=== PATIENT | male | born 1995 | race Caucasian/White ===

== ENCOUNTER 2024-09-23 08:39 | Day surgery (SDC) | payer OTHER, SELFPAY ==
[2024-09-23] VITALS (11 sets, daily range): BP systolic 123–168; BP diastolic 76–110; PULSE 50–82; RESP 13–18; TEMP 36.3–36.7; O2SAT 97–100; BMI 31.0
--- NOTE | 2024-09-23 08:40 | XR_ITS ---
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 There is a nail with barbs angled toward the proximal end in the remaining soft tissue of the thumb and extending anterior to the second metacarpal. Bone not involved. No other radiopaque soft tissue abnormality. XR/XR hand LT min 3V* [id number] IMPRESSION: Nail in the soft tissues of the left hand as above.
--- OUTSIDE RECORDS SUMMARY | 2024-09-23 08:43 | XMS_ITS | Encounter Summary ---
Author Organization [facility] Address [address] [place] [address] Care Team Providers Care Claims Service Adjustor Name Role Phone Almita Van DO Primary Care Provider Encounter Details Date Type Department Care Team (Latest Contact Info) Description 08/15/2003 Outpatient Historical 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
--- OUTSIDE RECORDS SUMMARY | 2024-09-23 08:43 | XMS_ITS | Encounter Summary ---
Author Organization [facility] Address [address] [place] [address] Care Team Providers Care Director Banking Name Role Phone Almita Van DO Primary Care Provider Encounter Details Date Type Department Care Team (Latest Contact Info) Description 08/13/1997 Outpatient Historical [facility] Karson [address] [place] [address] Bneny Moreland, Abel Braswell MD [address] [place] [phone] Other and unspecified noninfectious gastroenteritis and colitis(558.9) (Primary Dx); Volume depletion Social History Tobacco Use Types Packs/Day Years Used Date Smoking Tobacco: Never Assessed Sex and Gender Information Value Date Recorded Sex Assigned at Not on file Legal Sex Male 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
--- OUTSIDE RECORDS SUMMARY | 2024-09-23 08:43 | XMS_ITS | Encounter Summary ---
Author Organization [facility] Address [address] [place] [address] Care Team Providers Care President And Ceo Name Role Phone Almita Van DO Primary Care Provider Encounter Details Date Type Department Care Team (Latest Contact Info) Description 06/01/1998 Outpatient Historical [facility] Imaging Services-Juan Oropeza [place] [address] [place] [address] Jaylen Robert MD NO ADDRESS ON FILE Acute bronchitis (Primary Dx) Social History Tobacco Use Types Packs/Day Years Used Date Smoking Tobacco: Never Assessed Sex and Gender Information Value Date Recorded Sex Assigned at Not on file Legal 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
--- OUTSIDE RECORDS SUMMARY | 2024-09-23 08:43 | XMS_ITS | Encounter Summary ---
Author Organization [facility] Address [address] [place] [address] Care Team Providers Care Early Education Teacher Name Role Phone Almita Van DO Primary Care Provider Encounter Details Date Type Department Care Team (Latest Contact Info) Description 09/05/1998 Outpatient Historical [facility] Pediatrics-Juan Oropeza [place] [address] [place] [address] Jaylen Robert MD NO ADDRESS ON FILE Acute pharyngitis (Primary Dx) Social History Tobacco Use Types Packs/Day Years Used Date Smoking Tobacco: Never Assessed Sex and Gender Information Value Date Recorded Sex Assigned at Not on file 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
--- OUTSIDE RECORDS SUMMARY | 2024-09-23 08:43 | XMS_ITS | Encounter Summary ---
Author Organization [facility] Address [address] [place] [address] Care Team Providers Care Camera Person Name Role Phone Almita Van DO Primary Care Provider [phone] Encounter Details Date Type Department Care Team (Latest Contact Info) Description 08/15/2003 Outpatient Historical [facility] Pediatrics-Juan Oropeza [place] [address] [place] [address] Jaylen Robert MD NO ADDRESS ON FILE CONTUSION OF ANKLE (Primary Dx); CELLULITIS OF LEG; FX FOOT BONE NOS-CLOSED Social History Tobacco Use Types Packs/Day Years Used Date Smoking Tobacco: Never Assessed Sex and Gender Information Value Date Recorded Sex Assigned at Not on file Legal Sex Male 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
--- OUTSIDE RECORDS SUMMARY | 2024-09-23 08:43 | XMS_ITS | Encounter Summary ---
Author Organization [facility] Address [address] [place] [address] Care Team Providers Care Nuclear Unit Operator Name Role Phone Almita Van DO Primary Care Provider Encounter Details Date Type Department Care Team (Latest Contact Info) Description 07/25/1997 Outpatient Historical [facility] Pediatrics-Juan Oropeza [place] [address] [place] [address] Jaylen Robert MD NO ADDRESS ON FILE Acute pharyngitis (Primary Dx) Social History Tobacco Use Types Packs/Day Years Used Date Smoking Tobacco: Never Assessed Sex and Gender Information Value Date Recorded Sex Assigned at Not on file Legal Sex Male 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
--- OUTSIDE RECORDS SUMMARY | 2024-09-23 08:43 | XMS_ITS | Encounter Summary ---
Author Organization [facility] Address [address] [place] [address] Care Team Providers Care Pipe Coverer Helper Name Role Phone Almita Van DO Primary Care Provider Encounter Details Date Type Department Care Team (Latest Contact Info) Description 06/01/1998 Outpatient Historical [facility] Pediatrics-Juan Oropeza [place] [address] [place] [address] Jaylen Robert MD NO ADDRESS ON FILE Acute bronchitis (Primary Dx) Social History Tobacco Use Types Packs/Day Years Used Date Smoking Tobacco: Never Assessed Sex and Gender Information Value Date Recorded Sex Assigned at Not on file Legal Sex Male 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
--- OUTSIDE RECORDS SUMMARY | 2024-09-23 08:43 | XMS_ITS | Encounter Summary ---
Author Organization [facility] Address [address] [place] [address] Care Team Providers Care Laboratory Manager Name Role Phone Almita Van DO Primary Care Provider Encounter Details Date Type Department Care Team (Latest Contact Info) Description 09/22/1997 Outpatient Historical [facility] Pediatrics-Juan Oropeza [place] [address] [place] [address] Wayne Chatman MD NO ADDRESS ON FILE Other and unspecified noninfectious gastroenteritis and colitis(558.9) (Primary Dx) Social History Tobacco Use Types Packs/Day Years Used Date Smoking Tobacco: Never Assessed Sex and Gender Information Value Date Recorded Sex Assigned at Not on file Legal 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
--- OUTSIDE RECORDS SUMMARY | 2024-09-23 08:43 | XMS_ITS | Encounter Summary ---
Author Organization [facility] Address [address] [place] [address] Care Team Providers Care Backfiller Name Role Phone Almita Van DO Primary Care Provider Encounter Details Date Type Department Care Team (Latest Contact Info) Description 01/25/1998 Outpatient Historical [facility] Pediatrics-Juan Oropeza [place] [address] [place] [address] Jaylen Robert MD NO ADDRESS ON FILE Bronchopneumonia, organism unspecified (Primary Dx) Social History Tobacco Use Types Packs/Day Years Used Date Smoking Tobacco: Never Assessed Sex and Gender Information Value Date Recorded Sex Assigned at Not on file Legal 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
--- OUTSIDE RECORDS SUMMARY | 2024-09-23 08:43 | XMS_ITS | Encounter Summary ---
Author Organization [facility] Address [address] [place] [address] Care Team Providers Care Reverse Unit Operator Fisherman Name Role Phone Almita Van DO Primary Care Provider Encounter Details Date Type Department Care Team (Latest Contact Info) Description 07/25/2003 Outpatient Historical [facility] Pediatrics-Juan Oropeza [place] [address] [place] [address] Jaylen Robert MD NO ADDRESS ON FILE FX PHALANX, FOOT-CLOSED (Primary Dx) Social History Tobacco Use Types Packs/Day Years Used Date Smoking Tobacco: Never Assessed Sex and Gender Information Value Date Recorded Sex Assigned at Not on file Legal Sex Male 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
--- OUTSIDE RECORDS SUMMARY | 2024-09-23 08:43 | XMS_ITS | Encounter Summary ---
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
--- OUTSIDE RECORDS SUMMARY | 2024-09-23 08:43 | XMS_ITS | Encounter Summary ---
Author Organization [facility] Address [address] [place] [address] Care Team Providers Care Vice President Of Development Name Role Phone Almita Van DO Primary Care Provider [phone] Encounter Details Date Type Department Care Team (Latest Contact Info) Description 09/08/1997 Outpatient Historical [facility] Pediatrics-Juan Oropeza Karson [address] [place] [address] Wayne Chatman MD NO ADDRESS ON FILE Abdominal pain, unspecified site (Primary Dx) Social History Tobacco Use Types Packs/Day Years Used Date Smoking Tobacco: Never Assessed Sex and Gender Information Value Date Recorded Sex Assigned at Not on file Legal 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
--- OUTSIDE RECORDS SUMMARY | 2024-09-23 08:43 | XMS_ITS | Encounter Summary ---
Author Organization [facility] Address [address] [place] [address] Care Team Providers Care Instrument Person Name Role Phone Almita Van DO Primary Care Provider [phone] Encounter Details Date Type Department Care Team (Latest Contact Info) Description 01/27/1998 Outpatient Historical [facility] Pediatrics-Juan Oropeza [place] [address] [place] [address] Jaylen Robert MD NO ADDRESS ON FILE Bronchopneumonia, organism unspecified (Primary Dx) Social History Tobacco Use Types Packs/Day Years Used Date Smoking Tobacco: Never Assessed Sex and Gender Information Value Date Recorded Sex Assigned at Not on file Legal Sex Male 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
--- OUTSIDE RECORDS SUMMARY | 2024-09-23 08:43 | XMS_ITS | Encounter Summary ---
Author Organization [facility] Address [address] [place] [address] Care Team Providers Care Soldering Inspector Name Role Phone Almita Van DO Primary Care Provider Encounter Details Date Type Department Care Team (Late st Contact Info) Description 03/14/1997 Outpatient Historical [facility] Pediatrics-Juan Oropeza [place] [address] [place] [address] Benny Moreland, Abel Braswell MD [address] [place] [phone] Acute pharyngitis (Primary Dx) Social History Tobacco Use Types Packs/Day Years Used Date Smoking Tobacco: Never Assessed Sex and Gender Information Value Date Recorded Sex Assigned at Not on file Legal 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
--- OUTSIDE RECORDS SUMMARY | 2024-09-23 08:43 | XMS_ITS | Encounter Summary ---
Author Organization [facility] Address [address] [place] [address] Care Team Providers Care Blending Kettle Tender Name Role Phone Almita Van DO Primary Care Provider Encounter Details Date Type Department Care Team (Latest Contact Info) Description 04/11/[address] [facility] Pediatrics-Juan Oropeza [place] [address] [place] [address] Jaylen Robert MD NO ADDRESS ON FILE Need for prophylactic vaccination with combined txfqevhbdk-kbiusyt-g ertussis (DTP) vaccine (Primary Dx); Need for prophylactic vaccination with tgnjkoa-rloss-pfwpnu a (MMR) vaccine; Need for prophylactic vaccination against Hemophilus influenza type B (Hib); Vaccine for varicella Social History Tobacco Use Types Packs/Day Years Used Date Smoking Tobacco: Never Assessed Sex and Gender Information Value Date Recorded Sex Assigned at Not on file Legal Sex Male 4:40 AM OPERATIONS/DISPATCH Gender Identity Not on file Sexual Orientation Not on file documented as of this encounter Plan of Treatment Not on file documented as of this encounter Visit Diagnoses Diagnosis Need for prophylactic vaccination with combined aqrbowxkey-qhmgcqx-iktwtpwyr (DTP) vaccine- Primary Need for prophylactic vaccination with alouhbo-beblp-zjtgyhv (MMR) vaccine Need for prophylactic vaccination against Hemophilus influenza type B (Hib) Vaccine for varicella Need for prophylactic vaccination and inoculation against varicella documented in this encounter Care Teams Blending Kettle Tender Relationship Specialty Start Date End Date Almita Van DO [address] [place] [address] PCP - General Family Practice 08/16/20 documented as of this encounter
--- OUTSIDE RECORDS SUMMARY | 2024-09-23 08:43 | XMS_ITS | Clinical Summary ---
Author Organization [facility] Address [address] [place] [address] Phone Care Team Providers Care Nurse Research Name Role Phone Almita Van DO Primary Care Provider Allergies No known active allergies Medications naproxen (NAPROSYN) 500 mg tablet Take 1 Tablet (500 mg) by mouth 2 times daily with meals. 60 Tablet 07/01/2017 Active triamcinolone acetonide (KENALOG) 0.5 % OintmentIndicati ons:Rash and nonspecific skin eruption Apply small amount to left hand BID until rash healed 30 Gram 1 12/09/2018 Active rOPINIRole (REQUIP) 0.5 mg tablet Take 0.5 mg by mouth daily. 01/20/2020 Active hydrOXYzine pamoate (VISTARIL) 50 mg capsuleIndicatio ns:Anxiety Take 1 Capsule (50 mg) by mouth 3 times daily as needed for Anxiety or Itching. 90 Capsule 1 02/15/2020 Active terbinafine HCL (AntifungaL, terbinafine,) 1 % CreamIndications :Tinea cruris Apply small amount BID to rash on left buttocks. 24 Gram 2 02/15/2020 Active sertraline (ZOLOFT) 100 mg tabletIndication s:Major depressive disorder with single episode, in partial remission Take 1 Tablet (100 mg) by mouth daily. 90 Tablet 3 05/17/2020 Active acetaminophen (TYLENOL) 325 mg tablet Take 325 mg by mouth every 4 hours as needed. Active prazosin (MINIPRESS) 2 mg capsuleIndicatio ns:Anxiety TAKE 1 CAPSULE(2 MG) BY MOUTH DAILY 30 Capsule 2 09/12/2020 Active traZODone (DESYREL) 50 mg tabletIndication s:Major depressive disorder with single episode, in partial remission,Insomn ia, unspecified type TAKE 1 TABLET(50 MG) BY MOUTH DAILY 30 Tablet 2 09/12/2020 Active Active Problems No known active problems Immunizations Immunization Administration Dates Next Due (ADACEL/BOOSTRIX)(10 YR UP) TDAP VACCINE, 0.5ML, IM 07/14/2009 (M-M-R II/PRIORIX)(12 MO UP) MEASLES, MUMPS AND RUBELLA VIRUS VACCINE, 0.5 ML IM/SUBCUT 11/06/2001,04/11/1997 (VARIVAX)(12 MOS UP)VARICELL A VIRUS VACCINE (PF) 0.5 ML, SUB CUT 04/11/1997 Dt Dtp Dtap Vaccine 11/06/2001, 8,1996,1996,1996 HIB, Unspecified Formulation 04/11/1997, 1996,1996,1996 Hepatitis B Vaccine 1996,1996,1995 IPV/OPV 11/06/2001, 7,1996,1996 Social History Tobacco Use Types Packs/Day Years Used Date Smoking Tobacco: Every Day Cigarettes Smokeless Tobacco: Current Tobacco Cessation:Ready to Q uit: No Sex and Gender Information Value Date Recorded Sex Assigned at Not on file Legal 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 Gender Identity Not on file Sexual Orientation Not on file Last Filed Vital Signs Vital Sign Reading Time Taken Comments Blood Pressure 116/74 08/16/2020 2:51 PM CDT Pulse 122 08/16/2020 2:51 PM CDT Temperature 37.5 C (99.5 F) 08/16/2020 2:51 PM CDT Respiratory Rate 18 12/09/2018 9:03 AM CDT Oxygen Saturation 97% 08/16/2020 2:51 PM CDT Inhaled Oxygen Concentration - - Weight 90.3 kg (199 lb) 08/16/2020 2:51 PM CDT Height 175.3 cm (5' 9 ) 08/16/2020 2:51 PM CDT Body Mass Index 29.39 08/16/2020 2:51 PM CDT Plan of Treatment Health Maintenance Due Date Last Done Comments DTAP/TDAP/TD VACCINES (7 - Td or Tdap) 07/15/2019 07/14/2009, 11/06/2001, 04/11/1997, Additional history exists Preventative Visit- Commercial 03/24/2024 INFLUENZA VACCINE (#1) 2024 08/16/2020 HEPATITIS B VACCINES Completed 1996, 1996, 1996 HPV VACCINES Aged Out No longer eligi ble based on patient's age to complete this topic Insurance [address] [place] [id number] [facility] Care Teams Nurse Research Relationship Specialty Start Date End Date Almita Van DO [address] [facility] [place] [address] PCP - General Family Practice 08/16/20
--- OUTSIDE RECORDS SUMMARY | 2024-09-23 08:43 | XMS_ITS | Clinical Summary ---
Author Organization [facility] Address [address] [place] [address] Phone Care Team Providers Care Knocker Off Name Role Phone Almita Van Primary Care Provider Allergies No known active allergies Medications acetaminophen (TYLENOL) 325 mg tablet Take 325 mg by mouth every 4 hours as needed. 08/17/19 21 Active hydrOXYzine pamoate (VISTARIL) 50 mg capsuleIndicatio ns:Anxiety Take 1 Capsule (50 mg) by mouth 3 times daily as needed for Anxiety. 90 Capsule 1 02/13/20 23 Active sertraline (Zoloft) 100 mg tabletIndication s:Moderate episode of recurrent major depressive disorder (CMS/HCC) Take 1.5 Tablets (150 mg) by mouth daily. 135 Tablet 3 05/11/19 25 Active gabapentin (NEURONTIN) 300 mg capsuleIndicatio ns:Seizure disorder (CMS/HCC),Chroni c neck pain Take 2 capsule by mouth in the morning and 1 capsule in the evening. 270 Capsule 3 05/11/19 25 Active amphetamine-dext roamphetamine (ADDERALL XR) 20 mg Extended Release 24 hour capsuleIndicatio ns:Attention deficit hyperactivity disorder (ADHD), combined type Take 1 Capsule (20 mg) by mouth daily. Needs appointment for further refills Max Daily Amount: 20 mg 30 Capsule 09/03/19 25 Active neomycin-polymyx in-dexAMETHasone (MAXITROL) 3.5mg/mL-10,000 unit/mL-0.1 % suspensionIndica tions:Hordeolum externum left lower eyelid Administer 2 Drops in left eye every 6 hours. 5 mL 3 09/14/19 Active amphetamine-dext roamphetamine (ADDERALL XR) 20 mg Extended Release 24 hour capsuleIndicatio ns:Attention deficit hyperactivity disorder (ADHD), combined type TAKE ONE CAPSULE BY MOUTH DAILY 30 Capsule 06/23/19 25 2024 Discontinued amoxicillin-clav ulanate (AUGMENTIN) 875-125 mg tabletIndication s:Hordeolum externum left lower eyelid Take 1 Tablet by mouth every 12 hours for 7 days. 14 Tablet 09/14/19 25 2024 Active Problems Problem Noted Date Diagnosed Date Chronic neck pain 05/11/2024 Seizure disorder 05/11/2024 Attention deficit hyperactiv ity disorder (ADHD), combined type 04/01/2023 Moderate episode of recurrent major depressive d isorder 04/01/2023 Resolved Problems Problem Noted Date Diagnosed Date Resolved Date Grand mal seizure 05/11/2024 Encounters Date Type Department Care Team Description 09/13/2024 10:00 AM CDT Office Visit [facility] [address] [place] [address] Cameron Song, TUNNEL MUCKER Hordeolum externum left lower eyelid (Primary Dx); Attention deficit hyperactivity disorder (ADHD), combined type; Chronic neck pain; Seizure disorder (CMS/HCC); Moderate episode of recurrent major depressive disorder (CMS/HCC) 09/10/2024 Refill [facility] [address] [place] [address] Almita Van DO Moderate episode of recurrent major depressive disorder (CMS/HCC) 09/01/2024 Refill [facility] [address] [place] [address] Almita Van DO Attention deficit hyperactivity disorder (ADHD), combined type from Last 3 Months Immunizations Immunization Administration Dates Next Due (ADACEL/BOOSTRIX)(10 YR UP) TDAP VACCINE, 0.5ML, IM 07/14/2009 (M-M-R II/PRIORIX)(12 MO UP) MEASLES, MUMPS AND RUBELLA VIRUS VACCINE, 0.5 ML IM/SUBCUT 11/06/2001,04/11/1997 (SPIKEVAX) (12 YRS UP PRIMAR Y SERIES) COVID-19 VACCINE - MRNA-1273(PF) 100 MCG/0.5 ML IM SUSP 04/23/2021 (VARIVAX)(12 MOS UP)VARICELL A VIRUS VACCINE (PF) 0.5 ML, SUB CUT 04/11/1997 Dt Dtp Dtap Vaccine 11/06/2001, 8,1996,1996,1996 HIB, Unspecified Formulation 04/11/1997, 1996,1996,1996 Hepatitis B Vaccine 1996,1996,1995 INFLUENZA VACCINE QUADRIVALE NT 6 MOS UP IM 02/12/2023 IPV/OPV 11/06/2001, 7,1996,1996 Family History Medical History Relation Name Comments No Known Problems Brother 2 Heart Disease Father Diabetes Mother Obesity Mother Relation Name Status Comments Brother 2 Alive Father Mother Alive Social History Tobacco Use Types Packs/Day Years Used Date Smoking Tobacco: Every Day Cigarettes Passive Smoke Exposure: Current Smokeless Tobacco: Former Chew Tobacco Cessation:Ready to Q uit: Not Asked; Counseling Given: Yes Alcohol Use Standard Drinks/Week Comments Yes 1 (1 standard drink = 0.6 oz pur e alcohol) maybe one a week Feeling Safe Answer Date Recorded Are you in a relationship wi th someone who hurts you emotionally and/or physically? 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 CLERK Gender Identity Not on file Sexual Orientation Not on file Last Filed Vital Signs Vital Sign Reading Time Taken Comments Blood Pressure 126/68 09/13/2024 10:05 AM CDT Pulse 64 09/13/2024 10:05 AM CDT Temperature 36.5 C (97.7 F) 09/13/2024 10:05 AM CDT Respiratory Rate 18 09/13/2024 10:05 AM CDT Oxygen Saturation 97% 09/13/2024 10:05 AM CDT Inhaled Oxygen Concentration - - Weight 93.4 kg (206 lb) 09/13/2024 10:05 AM CDT Height 175.3 cm (5' 9 ) 09/13/2024 10:05 AM CDT Body Mass Index 30.42 09/13/2024 10:05 AM CDT Plan of Treatment Upcoming Encounters Date Type Department Care Team (Late st Contact Info) Description 12/16/2024 1:00 PM CDT Office Visit [facility] [place] [address] [place] [address] Almita Van, DO [address] [place] [address] Health Maintenance Due Date Last Done Comments DTAP/TDAP/TD VACCINES (7 - Td or Tdap) 07/15/2019 07/14/2009, 11/06/2001, 04/11/1997, Additional history exists COVID-19 Vaccine ( season) 2023 04/23/2021, 03/26/2021 Preventative Visit- Commercial 03/24/2024 INFLUENZA VACCINE (#1) 2024 , 01/03/2021, 01/03/2021, Additional history exists HEPATITIS B VACCINES Completed 1996, 1996, 1996, Additional history exists HPV VACCINES Aged Out No longer eligi ble based on patient's age to complete this topic Insurance [employer] Care Teams Knocker Off Relationship Specialty Start Date End Date Almita Van DO [address] [place] [phone] PCP - General 11/07/20
--- OUTSIDE RECORDS SUMMARY | 2024-09-23 08:43 | XMS_ITS | Encounter Summary ---
Author Organization [facility] Address [address] [place] [address] Care Team Providers Care Linen Room Worker Name Role Phone Almita Van DO Primary Care Provider [phone] Encounter Details Date Type Department Care Team (Late st Contact Info) Description 04/07/1998 Outpatient Historical [facility] Pediatrics-[place] Telfair [address] [place] [address] Jaylen Robert MD NO ADDRESS ON FILE Social History Tobacco Use Types Packs/Day Years Used Date Smoking Tobacco: Never Assessed Sex and Gender Information Value Date Recorded Sex Assigned at Not on file Legal Sex Male 4:40 AM ONCOLOGY NURSE NAVIGATOR Gender Identity Not on file Sexual Orientation Not on file documented as of this encounter Plan of Treatment Not on file documented as of this encounter Visit Diagnoses Not on filedocumented in this encounter Care Teams Linen Room Worker Relationship Specialty Start Date End Date Almita Van DO [address] [place] [address] PCP - General Family Practice 08/16/20 documented as of this encounter
--- OUTSIDE RECORDS SUMMARY | 2024-09-23 08:43 | XMS_ITS | Encounter Summary ---
Author Organization [facility] Address [address] [place] [address] Care Team Providers Care Gymnastics Coach Or Instructor Name Role Phone Almita Van DO Primary Care Provider Encounter Details Date Type Department Care Team (Latest Contact Info) Description 05/28/1998 Outpatient Historical [facility] Sandip Karson [address] [place] [address] Wayne Chatman MD NO ADDRESS ON FILE Fever and other physiologic disturbances of temperature regulation (Primary Dx) Social History Tobacco Use Types Packs/Day Years Used Date Smoking Tobacco: Never Assessed Sex and Gender Information Value Date Recorded Sex Assigned at Not on file Legal Sex Male 4:40 AM HEALTH PROGRAM DIRECTOR Gender Identity Not on file Sexual Orientation Not on file documented as of this encounter Plan of Treatment Not on file documented as of this encounter Visit Diagnoses Diagnosis Fever and other physiologic disturbances of temperature regulation- Primary documented in this encounter Care Teams Gymnastics Coach Or Instructor Relationship Specialty Start Date End Date Almita Van DO [address] [place] [address] PCP - General Family Practice 08/16/20 documented as of this encounter
--- OUTSIDE RECORDS SUMMARY | 2024-09-23 08:43 | XMS_ITS | Encounter Summary ---
Author Organization [facility] Address [address] [place] [address] Care Team Providers Care Phy Therapist Name Role Phone Almita Van DO Primary Care Provider Encounter Details Date Type Department Care Team (Latest Contact Info) Description 01/25/1998 Outpatient Historical [facility] Imaging Services-[place] Oro[place] [address] [place] [address] Jaylen Robert MD NO ADDRESS ON FILE Bronchopneumonia, organism unspecified (Primary Dx) Social History Tobacco Use Types Packs/Day Years Used Date Smoking Tobacco: Never Assessed Sex and Gender Information Value Date Recorded Sex Assigned at Not on file Legal Sex Male 4: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
--- OUTSIDE RECORDS SUMMARY | 2024-09-23 08:43 | XMS_ITS | Encounter Summary ---
Author Organization [facility] Address [address] [place] [address] Care Team Providers Care Glass Technician Name Role Phone Almita Van DO Primary Care Provider [phone] Encounter Details Date Type Department Care Team (Late st Contact Info) Description 06/21/1997 Outpatient Historical [facility] Pediatrics[facility] [address] [place] [address] Jaylen Robert MD NO ADDRESS ON FILE Social History Tobacco Use Types Packs/Day Years Used Date Smoking Tobacco: Never Assessed Sex and Gender Information Value Date Recorded Sex Assigned at Not on file Legal Sex Male 4:40 AM BIOINFORMATICS SCIENTIST Gender Identity Not on file Sexual Orientation Not on file documented as of this encounter Plan of Treatment Not on file documented as of this encounter Visit Diagnoses Not on filedocumented in this encounter Care Teams Glass Technician Relationship Specialty Start Date End Date Almita Van DO [address] [place] [address] PCP - General Family Practice 08/16/20 documented as of this encounter
--- OUTSIDE RECORDS SUMMARY | 2024-09-23 08:43 | XMS_ITS | Encounter Summary ---
Author Organization [facility] Address [address] [place] [address] Care Team Providers Care Acquisition Professional Name Role Phone Almita Van DO Primary Care Provider Encounter Details Date Type Department Care Team (Latest Contact Info) Description 02/09/1998 Outpatient Historical [facility] Pediatrics-[place] [address] [place] [address] Jaylen Robert MD NO ADDRESS ON FILE Acute nonsup otitis media (Primary Dx) Social History Tobacco Use Types Packs/Day Years Used Date Smoking Tobacco: Never Assessed Sex and Gender Information Value Date Recorded Sex Assigned at Not on file Legal Sex Male 4:40 AM CANAL BOAT CAPTAIN Gender Identity Not on file Sexual Orientation Not on file documented as of this encounter Plan of Treatment Not on file documented as of this encounter Visit Diagnoses Diagnosis Acute nonsup otitis media- Primary Acute nonsuppurative otitis media, unspecified documented in this encounter Care Teams Acquisition Professional Relationship Specialty Start Date End Date Almita Van DO [address] [place] [address] PCP - General Family Practice 08/16/20 documented as of this encounter
--- OUTSIDE RECORDS SUMMARY | 2024-09-23 08:44 | XMS_ITS | Encounter Summary ---
Author Organization [facility] Address [address] [place] [address] Care Team Providers Care Crown And Bridge Technician Name Role Phone Almita Van DO Primary Care Provider Encounter Details Date Type Department Care Team (Latest Contact Info) Description 07/21/2003 Outpatient Historical [facility] Imaging Services-[place]uan Oro[place] [address] [place] [address] Jaylen Robert MD NO ADDRESS ON FILE SPRAIN OF FOOT NOS (Primary Dx) Social History Tobacco Use Types Packs/Day Years Used Date Smoking Tobacco: Never Assessed Sex and Gender Information Value Date Recorded Sex Assigned at Not on file Legal Sex Male 4:40 AM BRIDGE MANAGER Gender Identity Not on file Sexual Orientation Not on file documented as of this encounter Plan of Treatment Not on file documented as of this encounter Visit Diagnoses Diagnosis Sprain of foot, unspecified site- Primary documented in this encounter Care Teams Crown And Bridge Technician Relationship Specialty Start Date End Date Almita Van DO [address] [place] [address] PCP - General Family Practice 08/16/20 documented as of this encounter
--- OUTSIDE RECORDS SUMMARY | 2024-09-23 08:44 | XMS_ITS | Encounter Summary ---
Author Organization [facility] Address [address] [place] [address] Care Team Providers Care Fuel Cell Systems Engineer Name Role Phone Almita Van DO Primary Care Provider [phone] Encounter Details Date Type Department Care Team (Latest Contact Info) Description 02/10/2003 Outpatient Historical [facility] Pediatrics-[place]uan Orope[place] [address] [place] [address] Jaylen Robert MD NO ADDRESS ON FILE CHEST PAIN NOS (Primary Dx); CARDIAC DYSRHYTHMIA NOS Social History Tobacco Use Types Packs/Day Years Used Date Smoking Tobacco: Never Assessed Sex and Gender Information Value Date Recorded Sex Assigned at Not on file Legal Sex Male 4:40 AM INSTITUTE DIRECTOR Gender Identity Not on file Sexual Orientation Not on file documented as of this encounter Plan of Treatment Not on file documented as of this encounter Visit Diagnoses Diagnosis Chest pain, unspecified- Primary Cardiac dysrhythmia, unspecified documented in this encounter Care Teams Fuel Cell Systems Engineer Relationship Specialty Start Date End Date Almita Van DO [address] [place] [address] PCP - General Family Practice 08/16/20 documented as of this encounter
--- OUTSIDE RECORDS SUMMARY | 2024-09-23 08:44 | XMS_ITS | Encounter Summary ---
Author Organization [facility] Address [address] Attn: [place] [address] Care Team Providers Care Athletic Training Internship Name Role Phone Almita Van DO Primary Care Provider Encounter Details Date Type Department Care Team (Late st Contact Info) Description 01/04/2000 Outpatient Historical Jenniffer Thomson MD NO ADDRESS ON FILE Social History Tobacco Use Types Packs/Day Years Used Date Smoking Tobacco: Never Assessed Sex and Gender Information Value Date Recorded Sex Assigned at Not on file Legal Sex Male 4:40 AM PARTS ADVISOR Gender Identity Not on file Sexual Orientation Not on file documented as of this encounter Plan of Treatment Not on file documented as of this encounter Visit Diagnoses Not on filedocumented in this encounter Care Teams Athletic Training Internship Relationship Specialty Start Date End Date Almita Van DO [address] [place] [address] PCP - General Family Practice 08/16/20 documented as of this encounter
--- OUTSIDE RECORDS SUMMARY | 2024-09-23 08:44 | XMS_ITS | Encounter Summary ---
Author Organization [facility] Address [address] [place] [address] Care Team Providers Care Water Plumber Name Role Phone Almita Van DO Primary Care Provider Encounter Details Date Type Department Care Team (Latest Contact Info) Description 02/10/2003 Outpatient Historical [facility] Imaging Services-[facility]uan [facility] [address] [place] [address] Jaylen Robert MD NO ADDRESS ON FILE CARDIAC DYSRHYTHMIA NOS (Primary Dx) Social History Tobacco Use Types Packs/Day Years Used Date Smoking Tobacco: Never Assessed Sex and Gender Information Value Date Recorded Sex Assigned at Not on file Legal Sex Male 4:40 AM BROWNFIELD PROGRAM COORDINATOR Gender Identity Not on file Sexual Orientation Not on file documented as of this encounter Plan of Treatment Not on file documented as of this encounter Visit Diagnoses Diagnosis Cardiac dysrhythmia, unspecified- Primary documented in this encounter Care Teams Water Plumber Relationship Specialty Start Date End Date Almita Van DO [address] [place] [address] PCP - General Family Practice 08/16/20 documented as of this encounter
--- OUTSIDE RECORDS SUMMARY | 2024-09-23 08:44 | XMS_ITS | Encounter Summary ---
Author Organization [facility] Address [address] [place] [address] Care Team Providers Care Help Desk Technician Name Role Phone Almita Van DO Primary Care Provider Encounter Details Date Type Department Care Team (Late st Contact Info) Description 01/04/2000 Outpatient Historical [facility] Social History Tobacco Use Types Packs/Day Years Used Date Smoking Tobacco: Never Assessed Sex and Gender Information Value Date Recorded Sex Assigned at Not on file Legal Sex Male 4:40 AM CAREGIVERS NON MEDICAL Gender Identity Not on file Sexual Orientation Not on file documented as of this encounter Plan of Treatment Not on file documented as of this encounter Visit Diagnoses Not on filedocumented in this encounter Care Teams Help Desk Technician Relationship Specialty Start Date End Date Almita Van DO [address] [place] [address] PCP - General Family Practice 08/16/20 documented as of this encounter
--- OUTSIDE RECORDS SUMMARY | 2024-09-23 08:44 | XMS_ITS | Encounter Summary ---
Author Organization [facility] Address [address] [place] [address] Care Team Providers Care Crane Man Name Role Phone Almita Van DO Primary Care Provider Encounter Details Date Type Department Care Team (Latest Contact Info) Description 06/12/1998 Outpatient Historical [facility] Pediatrics-[place] O[facility]pe[place] [address] [place] [address] Jaylen Robert MD NO ADDRESS ON FILE Bronchopneumonia, organism unspecified (Primary Dx) Social History Tobacco Use Types Packs/Day Years Used Date Smoking Tobacco: Never Assessed Sex and Gender Information Value Date Recorded Sex Assigned at Not on file Legal Sex Male 4:40 AM BOX TURNER Gender Identity Not on file Sexual Orientation Not on file documented as of this encounter Plan of Treatment Not on file documented as of this encounter Visit Diagnoses Diagnosis Bronchopneumonia, organism unspecified- Primary documented in this encounter Care Teams Crane Man Relationship Specialty Start Date End Date Almita Van DO [address] [place] [address] PCP - General Family Practice 08/16/20 documented as of this encounter
--- OUTSIDE RECORDS SUMMARY | 2024-09-23 08:44 | XMS_ITS | Encounter Summary ---
Author Organization [facility] Address [address] Attn: [place] [address] Care Team Providers Care Lighting Adviser Name Role Phone Almita Van DO Primary Care Provider Encounter Details Date Type Department Care Team (Late st Contact Info) Description 12/30/1999 Inpatient Historical Jenniffer Thomson MD NO ADDRESS ON FILE Social History Tobacco Use Types Packs/Day Years Used Date Smoking Tobacco: Never Assessed Sex and Gender Information Value Date Recorded Sex Assigned at Not on file Legal Sex Male 4:40 AM CRIMINAL JUSTICE TEACHER Gender Identity Not on file Sexual Orientation Not on file documented as of this encounter Plan of Treatment Not on file documented as of this encounter Visit Diagnoses Not on filedocumented in this encounter Care Teams Lighting Adviser Relationship Specialty Start Date End Date Almita Van DO [address] [place] [address] PCP - General Family Practice 08/16/20 documented as of this encounter
--- OUTSIDE RECORDS SUMMARY | 2024-09-23 08:44 | XMS_ITS | Encounter Summary ---
Author Organization [facility] Address [address] [place] [address] Care Team Providers Care Oncology Physician Name Role Phone Almita Van DO Primary Care Provider Encounter Details Date Type Department Care Team (Latest Contact Info) Description 09/09/2001 Outpatient Historical [facility] [address] [place] [address] Richie Wood MD NO ADDRESS ON FILE CONDUCT HEARING LOSS NOS (Primary Dx); OBSERVATN SUSPECT CONDN OTHER,SPEC Social History Tobacco Use Types Packs/Day Years Used Date Smoking Tobacco: Never Assessed Sex and Gender Information Value Date Recorded Sex Assigned at Not on file Legal Sex Male 4:40 AM SWEEPER DRIVER Gender Identity Not on file Sexual Orientation Not on file documented as of this encounter Plan of Treatment Not on file documented as of this encounter Visit Diagnoses Diagnosis Unspecified conductive hearing loss- Primary Observation for other specified suspected conditions documented in this encounter Care Teams Oncology Physician Relationship Specialty Start Date End Date Almita Van DO [address] [place] [address] PCP - General Family Practice 08/16/20 documented as of this encounter
--- OUTSIDE RECORDS SUMMARY | 2024-09-23 08:44 | XMS_ITS | Encounter Summary ---
Author Organization [facility] Address [address] [place] [address] Care Team Providers Care Hat And Cap Parts Cutter Hand Name Role Phone Almita Van DO Primary Care Provider [phone] Encounter Details Date Type Department Care Team (Latest Contact Info) Description 01/15/2000 Outpatient Historical [facility] Jenniffer Thomson MD NO ADDRESS ON FILE Follow-up examination following surgery (Primary Dx) Social History Tobacco Use Types Packs/Day Years Used Date Smoking Tobacco: Never Assessed Sex and Gender Information Value Date Recorded Sex Assigned at Not on file Legal Sex Male 4:40 AM [place] LEAD TEACHER Gender Identity Not on file Sexual Orientation Not on file documented as of this encounter Plan of Treatment Not on file documented as of this encounter Visit Diagnoses Diagnosis Follow-up examination following surgery- Primary documented in this encounter Care Teams Hat And Cap Parts Cutter Hand Relationship Specialty Start Date End Date Almita Van DO [address] [place] [address] PCP - General Family Practice 08/16/20 documented as of this encounter
--- OUTSIDE RECORDS SUMMARY | 2024-09-23 08:44 | XMS_ITS | Encounter Summary ---
Author Organization [facility] Address [address] [place] [address] Care Team Providers Care Ceramics Machine Operator Name Role Phone Almita Van DO Primary Care Provider [phone] Encounter Details Date Type Department Care Team (Latest Contact Info) Description 01/04/2000 Outpatient Historical [facility] Jenniffer Thomson MD NO ADDRESS ON FILE Follow-up examination following surgery (Primary Dx) Social History Tobacco Use Types Packs/Day Years Used Date Smoking Tobacco: Never Assessed Sex and Gender Information Value Date Recorded Sex Assigned at Not on file Legal Sex Male 4:40 AM STUDENT CAREER DEVELOPMENT SPECIALIST Gender Identity Not on file Sexual Orientation Not on file documented as of this encounter Plan of Treatment Not on file documented as of this encounter Visit Diagnoses Diagnosis Follow-up examination following surgery- Primary documented in this encounter Care Teams Ceramics Machine Operator Relationship Specialty Start Date End Date Almita Van DO [address] [place] [address] PCP - General Family Practice 08/16/20 documented as of this encounter
--- OUTSIDE RECORDS SUMMARY | 2024-09-23 08:44 | XMS_ITS | Encounter Summary ---
Author Organization [facility] Address [address] [place] [address] Care Team Providers Care Director Of Vocational Training Name Role Phone Almita Van DO Primary Care Provider [phone] Encounter Details Date Type Department Care Team (Latest Contact Info) Description 04/19/2003 Outpatient Historical [facility]-Juan Oropeza Karson [address] [place] [address] Jaylen Robert MD NO ADDRESS ON FILE VIRAL WARTS NOS (Primary Dx) Social History Tobacco Use Types Packs/Day Years Used Date Smoking Tobacco: Never Assessed Sex and Gender Information Value Date Recorded Sex Assigned at Not on file Legal Sex Male 4:40 AM INDUSTRIAL CHEMISTRY TEACHER Gender Identity Not on file Sexual Orientation Not on file documented as of this encounter Plan of Treatment Not on file documented as of this encounter Visit Diagnoses Diagnosis Viral warts, unspecified- Primary documented in this encounter Care Teams Director Of Vocational Training Relationship Specialty Start Date End Date Almita Van DO [address] [place] [address] PCP - General Family Practice 08/16/20 documented as of this encounter
--- OUTSIDE RECORDS SUMMARY | 2024-09-23 08:44 | XMS_ITS | Encounter Summary ---
Author Organization [facility] Address [address] [place] [address] Care Team Providers Care Curriculum And Instruction Specialist Name Role Phone Almita Van DO Primary Care Provider [phone] Encounter Details Date Type Department Care Team (Latest Contact Info) Description 07/21/2003 Outpatient Historical [facility]-Juan Oropeza Karson [address] [place] [address] Jaylen Robert MD NO ADDRESS ON FILE SPRAIN OF FOOT NOS (Primary Dx) Social History Tobacco Use Types Packs/Day Years Used Date Smoking Tobacco: Never Assessed Sex and Gender Information Value Date Recorded Sex Assigned at Not on file 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
--- OUTSIDE RECORDS SUMMARY | 2024-09-23 08:44 | XMS_ITS | Encounter Summary ---
[facility] Organization [facility] Address [address] 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
--- NOTE | 2024-09-23 09:35 | W.ED.SKABFB ---
HPI - Skin/Abscess/Foreign Bdy General: Chief complaint: Skin/Abscess/Foreign Body Stated complaint: Nail in Left Hand Time Seen by Provider: 09/23/24 08:40 History of Present Illness: 29-year-old male presents emergency room accidentally using a nail gun fired a nail into the left hand. 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 The nail enters at a very shallow angle and is fully embedded in the palm of the hand the tip of the nail can be seen just under the skin in the middle of the palm it is at the superior aspect of the thenar eminence does not enter the thenar eminence itself. He is unsure of his last tetanus shot. Associated symptoms: Deny chills or fever(s) Related Data Home Medications ?Medication ?Instructions ?Recorded ?Confirmed gabapentin 100 mg capsule 100 mg PO DAILY 06/18/24 09/23/24 dextroamphetamine-amphetamine ER 20 mg PO DAILY 09/23/24 09/23/24 20 mg 24hr capsule,extend release naproxen 250 mg tablet 250 mg PO BID PRN Pain 09/23/24 09/23/24 vytmiyzb-kiigpudzq-zfcjqtwm 3.5 2 drp ophthalmic (eye) Q6H 09/23/24 09/23/24 mg/mL-10,000 unit/mL-0.1% eye drops sertraline 100 mg tablet 100 mg PO DAILY 09/23/24 09/23/24 Previous Rx's ?Medication ?Instructions ?Recorded hydrocodone 5 mg-acetaminophen 325 1 tab PO Q6H PRN pain #30 tabs 09/23/24 mg tablet sulfamethoxazole 800 1 tab PO Q12H #20 tabs 09/23/24 mg-trimethoprim 160 mg tablet (Bactrim DS) Allergies Allergy/AdvReac Type Severity Reaction Status Date / Time No Known Allergies Allergy Verified 06/18/24 09:00 Review of Systems Const: Denies: fever(s) or chills Card: Denies: chest pain Resp: Denies: dyspnea [facility] PFSH: Medical History Psychiatric care Physical Exam Const: COMMON NORMALS: no acute distress GENERAL APPEARANCE: cooperative and comfortable ORIENTATION/CONSCIOUSNESS: Yes awake, Yes oriented to person, Yes oriented to place and Yes oriented to time HENMT: COMMON NORMALS: normocephalic, atraumatic and hearing grossly normal bilaterally HEAD & SCALP: normocephalic and atraumatic Resp: COMMON NORMALS: normal respiratory effort, No retractions, No use of accessory muscles and clear to auscultation bilaterally AUSCULTATION: clear to auscultation bilaterally Cardio: COMMON NORMALS: regular rate, regular rhythm and No murmurs present (Cardio) RATE: regular rate RHYTHM: regular rhythm Extremity: OTHER: Nail embedded in the shallow anger across the palm in the superior portion of the thenar eminence of the left hand. You can visualize the tip of the nail through the skin in the medial palm. Does not involve the musculature of the thenar eminence. Sensation normal able to move the remnant of the thumb in full range of motion. Neuro: SENSORIUM/ORIENTATION: Yes oriented to person, Yes oriented to place and Yes oriented to time Course Vital Signs: Vital signs: Vital Signs Temperature 97.4 F L 09/23/24 13:03 Pulse Rate 62 09/23/24 13:03 Respiratory Rate 18 09/23/24 13:03 Blood Pressure 154/94 09/23/24 13:03 Pulse Oximetry 98 09/23/24 13:03 Oxygen Delivery Me thod Room Air 09/23/24 13:03 MDM - Skin/Abscess/Foreign Bdy Medicial Decision Making Leg send nail is fully embedded as have barbs from where it was connected to the other nails and the belt for the pneumatic [place]. The head of the nail is not protruding enough to safely remove the head with a Dremel but without burning the patient. To get the nail removed because of the barbs will probably need to be dissected along its entire length of the shaft of the nail discussed Dr. Mohr who is on-call for Ortho he will take the patient to outpatient surgeries to perform this with his appropriate washout and closure as indicated. Patient was given Ancef and his tetanus updated in the emergency room Medical Records I reviewed the patient's medical records. Lab Data I reviewed the patient's lab results. Radiology Impressions Hand X-Ray 09/23/24 08:40 IMPRESSION: Nail in the soft tissues of the left hand as above. All radiology interpretation(s) finalized by discharge Discharge Plan Discharge Patient Disposition: Placed in Observation Clinical Impression: Foreign body of left hand Discharge Diet: Advance as tolerated Discharge Activity: Increase activity as tolerated Coding Level of Care Code ED Service Station Console Operator for Justo Bhatti
[2024-09-23] MEDS: tetanus-dipt-pertussis 0.5 mL SDV IM (10:05)
[2024-09-23] MEDS: ceFAZolin 1,000 mg SDV 1000 MG IVP (10:05)
[2024-09-23] MEDS: morphine 4 mg/mL SDV 1 mL IVP (10:36)
--- NOTE | 2024-09-23 11:17 | PM.CONSULT ---
Providers/Reason For Consult Consulting Physician/Specialty*: Shreyas Mohr MD Orthopedic surgery Reason for Consult*: Foreign body in the left hand (nail gun nail and thenar eminence of left hand) History of Present Illness History of Present Illness Andrea Sanchez is a 29 year old male Review of Systems General: Reports: 10 or more systems reviewed and unremarkable except in HPI and below Medications/Allergies Home Medications ?Medication ?Instructions ?Recorded ?Confirmed ?Last Taken ?Type gabapentin 100 mg capsule 100 mg PO DAILY 06/18/24 09/23/24 Unknown History dextroamphetamine-amphetamine ER 20 mg PO DAILY 09/23/24 09/23/24 09/23/24 History 20 mg 24hr capsule,extend release naproxen 250 mg tablet 250 mg PO BID PRN Pain 09/23/24 09/23/24 09/23/24 08:30 History naoghdfd-dpvhyerfd-bplfmofo 3.5 2 drp ophthalmic (eye) Q6H 09/23/24 09/23/24 Unknown History mg/mL-10,000 unit/mL-0.1% eye drops sertraline 100 mg tablet 100 mg PO DAILY 09/23/24 09/23/24 09/22/24 History Allergies Allergy/AdvReac Type Severity Reaction Status Date / Time No Known Allergies Allergy Verified 06/18/24 09:00 PFSH Acute PFSH: Medical History (Updated 09/23/24 @ 11:21 by Shreyas Mohr MD) Psychiatric care Vitals/I&O/Wt Last Vital Signs Temp 98.1 F 09/23/24 09:26 Pulse 56 L 09/23/24 10:38 Resp 17 09/23/24 09:26 BP 133/89 09/23/24 10:38 Pulse Ox 100 09/23/24 10:38 O2 Del Method Room Air 09/23/24 10:38 Weight last 48 hrs Weight 210 lb Physical Exam Narrative: Examination of left hand patient has previous amputation of his left thumb. Now with a nail sticking out of the thenar eminence and crossing towards the mid palmar area subcutaneously. Hands are dirty from working otherwise no other gross abnormalities. Neurovascular intact. Const: COMMON NORMALS: no acute distress, average body habitus and patient oriented x3 HENMT: COMMON NORMALS: normocephalic HEAD & SCALP: normocephalic Neck/C-Spine: COMMON NORMALS: full ROM Chest: COMMONS NORMALS: normal inspection of the chest Resp: COMMON NORMALS: normal respiratory effort, No use of accessory muscles and clear to auscultation bilaterally AUSCULTATION: clear to auscultation bilaterally Cardio: COMMON NORMALS: regular rate, regular rhythm and No murmurs present (Cardio) RATE: regular rate RHYTHM: regular rhythm Extremity: NARRATIVE EXTREMITY EXAM: As per above Neuro: COMMON NORMALS: patient oriented x3, moves all extremities, no focal motor deficits and no sensory deficits noted Psych: COMMON NORMALS: mental status grossly normal, Normal thought process present, cooperative and normal affect THOUGHT PROCESS: Normal thought process present Skin: COMMON NORMALS: no rashes or lesions noted and no wounds GENERAL SKIN EXAM: no rashes or lesions noted Data Other data: X-rays from the ED demonstrate nail in the soft tissues of the thenar eminence. Does not appear to be penetrating very deeply however it has barbs on it A&P Assessment and plan (1) Foreign body of left hand: Plan Plan at this time is for surgical excision of the nail gun nail from his left hand. This will more likely take opening up the hand somewhat to remove this nail due to the fact that he has barbs on it. All risk benefits treatment alternatives were discussed with the patient he is agreeable to this at this time. PDMP PDMP Reviewed: Not Reviewed Coding Level of Care Code Critical Care >/= 30 minutes Diagnoses Foreign body of left hand S60.552A
--- NOTE | 2024-09-23 12:10 | ANES.PROC ---
Anesthesia Procedures Procedure/Date: 09/23/24 Nerve Block ^: Nerve Block 1: Main Anesthesia: other (none) Time Out Performed: Yes Consent: requested by attending/covering physician and from patient Nerve block location: supraclavicular Anesthesia monitors applied: pulse oximetry, EKG, BP cuff and oxygen Nerve block position: supine Anesthetic Used: ropivicaine 0.5% Amount of anesthesia used (mL): 30 Ultrasound used to: recognize landmarks Nerve Stimulator Used?: Yes Interscalene/Femoral BLK: other needle (pjunk 4inch) Injection: neg aspiration of heme Patient Tolerated Procedure: well Complications: none Additional Comments: decadron 4mg added to block
--- NOTE | 2024-09-23 12:11 | ANES.PREANE2 ---
Pre-Anesthetic Assessment Height/Weight: Height 5 ft 9 in Weight 210 lb Temp Pulse Resp BP Pulse Ox O2 Del Method 97.8 F 50 L 13 152/92 99 Room Air 09/23/24 11:52 09/23/24 12:06 09/23/24 12:06 09/23/24 12:06 09/23/24 12:06 09/23/24 12:06 Preop Diagnosis: Foreign body in hand Operation Date: 09/23/24 13:30 Proposed Procedures p Excision of foreign body, left hand(Left) - Shreyas Mohr MD Was Beta Madhuri taken within 24 hours: N/A Was Clonidine taken within 24 hours: N/A Last intake: Intake Last Liquid Date 09/23/24 Last Liquid Time 08:00 Last Solid Date 09/23/24 Last Solid Time 05:30 Social Tobacco and No alcohol Exam alert, oriented x 3, clear to auscultation bilaterally and regular rate & rhythm Airway Submandibular: within normal limits Cervical ROM: within normal limits Mallampati: Class II Dentition: full Anesthetic Plan ASA status: 2 Anesthesia: Regional (specify below) Other: No prior issues with anesthesia Patient ate a kendrick egg and cheese sandwich right before 6 AM today Patient has a nail stuck in his hand currently. Current smoker Patient is very worried about driving home today as he does not have a ride. Discussed with surgeon and patient about peripheral nerve block and no sedation so that way patient was safe to drive following procedure. Plan for supraclavicular nerve block Medications/Allergies Home Medications ?Medication ?Instructions ?Recorded ?Confirmed ?Last Taken ?Type gabapentin 100 mg capsule 100 mg PO DAILY 06/18/24 09/23/24 Unknown History dextroamphetamine-amphetamine ER 20 mg PO DAILY 09/23/24 09/23/24 09/23/24 History 20 mg 24hr capsule,extend release naproxen 250 mg tablet 250 mg PO BID PRN Pain 09/23/24 09/23/24 09/23/24 08:30 History ogenpvms-vdyldlbbb-ygsfqslh 3.5 2 drp ophthalmic (eye) Q6H 09/23/24 09/23/24 Unknown History mg/mL-10,000 unit/mL-0.1% eye drops sertraline 100 mg tablet 100 mg PO DAILY 07/03/25 07/03/25 07/02/25 History Allergies Allergy/AdvReac Type Severity Reaction Status Date / Time No Known Allergies Allergy Verified 06/18/24 09:00 [facility] Anesthesia Medical History (Updated 09/23/24 @ 11:21 by Shreyas Mohr MD) Psychiatric care
[2024-09-23] MEDS: ceFAZolin 1,000 mg SDV 1000 MG IRRIGATION (12:40)
--- NOTE | 2024-09-23 13:00 | P.OP_ITS ---
Operative Report Date of procedure: September 23, 2024 Surgeon: Shreyas Mohr MD Procedure: Preoperative diagnosis: Foreign body in the left hand, nail from a nail gun Postoperative diagnosis: Same Procedure: Removal of foreign body left hand Surgeon: Shreyas Mohr MD Anesthesia: Regional block of left upper extremity EBL: None Specimens: Nail gun nail Indications: Adi is a 29-year-old white male was working with a nail gun earlier today when it misfired and went through his palmar surface of his hand on the thumb side of his left hand. X-rays demonstrated that there was not any bone involvement. Appear to be all soft tissue however the nail has barbs on it and therefore will not easily be removed. Therefore surgical intervention was indicated. All risk benefits treatment alternatives were discussed with him and he is agreeable to this at this time. Procedure: After obtaini written consent patient had a regional block administered in preop holding area. Patient then taken to the operative room and while still on his hospital [facility] had pneumatic cuff placed around proximal left arm. Left arm was prepped and draped usual fashion. After surgical timeout manipulation of the nail head was done the patient said he could still feel it at that time and therefore 10 cc of 1% plain lidocaine was injected about the area for further anesthetic effect. Once good anesthesia was achieved using just a pair of pliers the nail was pulled back up out through the path it had entered. Inspection of the nail demonstrated that one of the barbs was still on there the other 1 had broken off. I informed the patient of this and that there was no concern about getting that small jose carlos of metal while there. Wounds then washed with the antibiotic solution using a 16-gauge catheter down into the wound and irrigating into it. Once adequate irrigation been completed the wound was dressed with Xeroform gauze, sterile gauze dressing, Kerlix wrap, and Jose J wrap for compression. Patient was then transported to the recovery room stable condition
--- NOTE | 2024-09-23 13:23 | SUR.PHASEII ---
Patient left ambulatory, alert and oriented reporting no pain.
== END 2024-09-23 13:23 | disposition home or self-care (01) ==
LOC: ER 11:17 → OR 11:24
PROVIDERS: Emergency Provider Family Medicine; Visit Provider Orthopaedic Surgery
PROC: (CPT 10121; principal; 2024-09-23 13:20)
DX: S61.442A Puncture wound with foreign body of left hand, initial encounter (principal); W29.4XXA Contact with nail gun, initial encounter; F17.200 Nicotine dependence, unspecified, uncomplicated; Z89.012 Acquired absence of left thumb
CPT/HCPCS: 10121; 73130; 90715; J0690; J1885; J2270; J9999